=== PATIENT | female | born 1945 | race Caucasian/White ===

== ENCOUNTER 2019-03-15 06:00 | Outpatient (CLI) | payer BC, MEDICAID ==
[~2019-03-15] VITALS: Ht 162.6 cm; Wt 141.1 kg
[2019-03-15] MEDS ORDERED: CEFAZOLIN SOD 2 GM in D5W 50 ML IV ONE (07:00)
[2019-03-15 08:10] VITALS: BP_SYST 100
[2019-03-15 08:14] LABS: ANION GAP 5 (5-15); CALCIUM 9.6 mg/dL (8.4-11.0); CHLORIDE 97 mmol/L (98-107); CREATININE 1.64 mg/dL (0.55-1.30); GLUCOSE 177 mg/dL (70-99); POTASSIUM 4.2 mmol/L (3.5-5.1); SODIUM SERUM 130 mmol/L (136-145); UREA NITROGEN, BLOOD 49 mg/dL (8-21)
[2019-03-15] MEDS ORDERED: INSU100V9 SQ (08:37)
[2019-03-15] MEDS ORDERED: PRAD75 PO (08:37)
[2019-03-15] MEDS ORDERED: METO50TA7 PO (08:37)
[2019-03-15] MEDS ORDERED: SIMV20TA2 PO (08:37)
[2019-03-15] MEDS ORDERED: INSU100V SQ (08:37)
[2019-03-15] MEDS ORDERED: FURO-149 PO (08:37)
[2019-03-15] MEDS ORDERED: NEU400 PO (08:37)
[2019-03-15] MEDS ORDERED: BUPR300T55 PO (08:37)
[2019-03-15] MEDS ORDERED: SPIR50TA5 PO (08:37)
[2019-03-15] MEDS ORDERED: LISI-209 PO (08:37)
== END 2019-03-15 12:15 | disposition home or self-care (01) ==
LOC: UNDOADMIN 06:00 → SMU 06:00 → SLB 06:00 → EDSTATUS 08:00 → SLB 12:15
PROVIDERS: ATTEND Otolaryngology
DX: E04.2 Nontoxic multinodular goiter (principal)
CPT/HCPCS: 36415; 80048; 87081 ×2; J0690; J7060; J7120